=== PATIENT | female | born 1985 ===

== ENCOUNTER → 2019-01-21 | Outpatient (CLI) | payer MEDICAID ==
[2019-01-21 10:39] LABS: URINE CREATININE FOR RATIO 21 MG/DL (30-125); URINE PROTEIN FOR RATIO ONLY < 6 MG/DL (6-12)
== END ==
LOC: LABNPT 10:00
PROVIDERS: ATTEND Obstetrics & Gynecology
DX: O14.03 Mild to moderate pre-eclampsia, third trimester (principal)
CPT/HCPCS: 82570; 84156